=== PATIENT | female | born 1990 | race Caucasian/White ===

== ENCOUNTER 2020-10-02 16:57 | Inpatient (IN) | payer OTHER, SELFPAY ==
[2020-10-02 18:38] VITALS: BP 136/76; PULSE 74; RESP 16; TEMP 37.2; O2SAT 98; BMI 32.5
--- NOTE | 2020-10-02 19:17 | PC.NURSE ---
PT SEEN BY DR COLMENARES AND PT MAY NEED TO BE ADMITTED FOR IV ANTIBIOTIC THERAPY. PT MOVED TO MAIN ED BED 21 REPORTT GIVEN TO RN.
--- NOTE | 2020-10-02 19:40 | ED_ITS ---
HPI - Animal Bite General Chief Complaint: Animal Bite Stated Complaint: ankle pain, dental pain Time Seen by Provider: 10/02/20 19:05 Source: patient Mode of arrival: ambulatory Limitations: no limitations History of Present Illness HPI narrative: Patient comes to emergency room complaining of toothache, ankle swelling, and cellulitis around the dog bite. Patient states she has had chipped tooth for several weeks now, concerned that she may have a tooth infection. However, patient's main concern of today is the dog bite that is infected. Three weeks ago on September 10, patient got attacked by a friend's d og, a Rottweiler/pit bull mix. Patient was bitten in the right calf. The patient was given 10 days of oral Augmentin. Patient states she has not seen any pus oozing from her leg, however the wounds in her leg have a black eschar now. Patient states it hurts minimally, states most of the leg actually feels numb. Patient complaining pain and swelling around her ankle. Patient denies any fever or chills Related Data Allergies Allergy/AdvReac Type Severity Reaction Status Date / Time No Known Allergies Allergy Verified 10/02/20 18:43 [No Known Allergies*] Review of Systems 2 Review of Systems: Constitutional : No Weight loss, No Fever, No Chills, No Night Sweats, No Fatigue, No Malaise ENT/Mouth : No Hearing loss, No Ear Pain, No Nasal Congestion, No Sinus Pain, No Hoarseness, No sore throat, No Rhinorrhea, No Swallowing Difficulty, complaining of molar toothache in the right maxillary side Eyes: No Eye Pain, No Swelling, No Redness, No Foreign Body, No Discharge, No Vision Changes Cardiovascular : No Chest Pain, No SOB, No Dyspnea on Exertion, No Orthopnea, No Edema, No Palpitations Respiratory : No Cough, No Sputum, No Wheezing, No Smoke Exposure, No Dyspnea Gastrointestinal : No Nausea, No Vomiting, No Diarrhea, No Constipation, No abdominal Pain, No Hematochezia, No Melena Genitourinary : no irregular bleeding, No Dysuria, No Urinary Frequency, No Hematuria, No Urinary Incontinence, No Urgency, No Flank Pain, No Urinary Flow Changes, No Hesitancy Musculoskeletal : No joint pain, No Myalgias, No Joint Swelling Skin : Infected dog wound with necrotic eschars Neuro : No Weakness, No Numbness, No Paresthesias, No Loss of Consciousness, No Dizziness, No Headache Psych : No Anxiety/Panic, No Depression, No SI/HI/AH/VH, No Social Issues, Heme/Lymph: No Bruising, No Bleeding,No Lymphadenopathy Endocrine : No Polyuria, No Polydipsia, No Temperature Intolerance [facility] Past Medical History Medical History (Updated 10/02/20 @ 22:02 by Glenys Alejandro MD) Asthma Social History Social History Alcohol intake: never Substance Use Type: Marijuana Advance Directives: No Advance Directives Information Provided: Yes Physical Exam Vital Signs: Vital Signs: Last Vital Signs Temp 98.2 F 10/02/20 21:32 Pulse 69 10/02/20 21:32 Resp 16 10/02/20 21:32 BP 128/82 10/02/20 21:32 Pulse Ox 97 10/02/20 21:32 Body Mass Index 32.5 Appearance: Alert. Oriented X3. No acute distress. Eyes: Pupils equal, round and reactive to light. ENT: Pharynx normal. Chipped molar in the right maxilla, gum has an aphthous ulcer Neck: Normal inspection. Neck supple. No lymph nodes noted. No crepitus CVS: Normal heart rate and rhythm. Pulses normal. Normal S1 and S2 Respiratory: No respiratory distress. Breath sounds normal. No Wheezing. No rales Abdomen: Soft and nontender. No rigidity. No distention. good BS x4 Skin: Skin over the right calf is erythematous, patient has 3 open lacerations with a chronic eschars, pain to palpation around the skin wound and in the ankle, patient is able to flex and extend the ankle and move all toes Extremities: No lower extremity edema. No lower extremity edema. No Lacerations. No Rash Neuro: Oriented X 3. No motor deficit. No sensory deficit. Moving all extermities. No slurred speech. Course Course Course Narrative: I discussed the patient with Dr. Johns, patient will be admitted to the surgery service. MDM - Animal Bite Lab Data Result diagrams: 10/02/20 20:18 10/02/20 20:18 Labs: Lab Results 10/02/20 10/02/20 10/02/20 Range/Units 20:18 20:18 20:18 WBC 12.7 H (4.8-10.8) X10*3/uL RBC 4.41 (4.20-5.50) X10*6/uL Hgb 13.6 (12.0-16.0) g/dl Hct 41.1 (37-47) % MCV 93.2 (80-98) fL MCH 30.8 (27.0-33.0) pg MCHC 33.1 (31.0-35.0) g/dl RDW 13.0 (11.0-16.0) % Plt Count 405 H (160-400) X10*3/uL MPV 9.8 (9.4-12.3) fL Immature Gran % (Auto) 0.9 H (0.0-0.4) % Neut % (Auto) 68.6 (45-73) % Lymph % (Auto) 21.1 (20-40) % [place] % (Auto) 5.8 (2-11) % Eos % (Auto) 3.0 (0-4) % Baso % (Auto) 0.6 (0-2) % Lymph # (Auto) 2.7 (1.2-4.9) X10*3/uL [place] # (Auto) 0.7 (0.1-1.2) X10*3/uL Eos # (Auto) 0.4 (0.0-0.4) X10*3/uL Baso # (Auto) 0.1 (0.0-0.2) X10*3/uL Abs Immat Gran (auto) 0.12 H (0.00-0.03) X10*3/uL Absolute Neuts (auto) 8.7 H (2.0-8.3) X10*3/uL Absolute Nucleated RBC 0.000 (0.0-0.012) X10*3/uL Nucleated RBC % (auto) 0.0 (0.0-0.2) /100WBC Sodium 139 (135-145) mmol/L Potassium 4.4 (3.3-5.1) mmol/l Chloride 106 (96-108) mmol/L Carbon Dioxide 21 L (22-29) mmol/L Anion Gap 16 (12-20) BUN 9 (9-16) mg/dL Creatinine 0.73 (0.5-1.4) mg/dL Estim Creat Clear Calc 119.7 Estimated GFR > 60 Random Glucose 79 (60-115) mg/dL Lactic Acid 1.1 (0.5-2.0) mmol/L Calcium 8.8 (8.4-10.2) mg/dL Discharge Plan Discharge Clinical Impression: Dog bite, Cellulitis Patient Disposition: Admitted As Inpatient
[2020-10-02] MEDS: 0.9 % Sodium Chloride 1,000 ML 999 ML IVCONT (20:10)
[2020-10-02 20:26] LABS: MANUAL DIFF FLAG NO
[2020-10-02 20:29] LABS: Basophils Absolute Auto 0.1 X10*3/uL (0.0-0.2); Basophils Percent Auto 0.6 % (0-2); Eosinophils Absolute Auto 0.4 X10*3/uL (0.0-0.4); Hematocrit 41.1 % (37-47); Hemoglobin 13.6 g/dl (12.0-16.0); Imm Gran Abs Auto 0.12 X10*3/uL (0.00-0.03); Imm Gran Pct Auto 0.9 % (0.0-0.4); Lymphocytes Absolute Auto 2.7 X10*3/uL (1.2-4.9); Lymphocytes Percent Auto 21.1 % (20-40); Mean Corpuscular HGB Conc 33.1 g/dl (31.0-35.0); Mean Corpuscular Hemoglobin 30.8 pg (27.0-33.0); Mean Corpuscular Volume 93.2 fL (80-98); Mean Platelet Volume 9.8 fL (9.4-12.3); Monocytes Absolute Auto 0.7 X10*3/uL (0.1-1.2); Monocytes Percent Auto 5.8 % (2-11); Neutrophils Absolute Auto 8.7 X10*3/uL (2.0-8.3); Neutrophils Percent Auto 68.6 % (45-73); Platelet Count 405 X10*3/uL (160-400); Red Blood Count 4.41 X10*6/uL (4.20-5.50); White Blood Count 12.7 X10*3/uL (4.8-10.8)
[2020-10-02] MEDS: Piperacillin Sodium/Tazobactam 3.375 GM in 0.9 % Sodium Chloride 50 ML IV (20:30)
[2020-10-02] MEDS: Ketorolac Tromethamine 30 MG/ML VIAL IVPUSH (20:38)
[2020-10-02 20:52] LABS: Lactic Acid 1.1 mmol/L (0.5-2.0)
[2020-10-02 20:54] LABS: Anion Gap 16 (12-20); Blood Urea Nitrogen 9 mg/dL (9-16); Calcium 8.8 mg/dL (8.4-10.2); Carbon Dioxide 21 mmol/L (22-29); Chloride 106 mmol/L (96-108); Creatinine Clr Calc Pharmacy 119.7; Estimated Glomerular Filt Rate > 60; Glucose Random 79 mg/dL (60-115); Potassium 4.4 mmol/l (3.3-5.1); Sodium 139 mmol/L (135-145)
[2020-10-02] MEDS: vancomycin HCL 1,000 MG in 0.9 % Sodium Chloride 250 ML 270 MG IV (21:21)
[2020-10-02 21:32] VITALS: BP 128/82; PULSE 69; RESP 16; TEMP 36.8; O2SAT 97
--- NOTE | 2020-10-02 22:15 | PC.NURSE ---
PT STATES NO MEDS AT HOME. AREA BELOW WOUNDS REMAINS SWOLLEN, PAINFUL. ABLE TO AMBULATE STEADILY TO BATHROOM.
--- NOTE | 2020-10-02 22:16 | PC.NURSE ---
PT ARRIVES TRIAGED FROM [facility] [place]. PITBULL BITE 3 WKS AGO, GIVEN PO AUGMENTIN X 10 DAYS, INFECTION PERSISTS. PAIN AND SWELLING BELOW 3 BITE WOUNDS, SLIGHT DISTAL NUMBNESS, ABLE TO MOVE TOES, ICE PACK APPLIED. DENIES FEVERS AT HOME, VS WNL.
[2020-10-02 22:24] LABS: COVID-19 Test Negative (Negative)
--- NOTE | 2020-10-02 22:57 | PC.NURSE ---
Addendum entered by Alicia Ballard RN 10/02/20 22:58: *MED SURG Original Note: CALL MADE UP TO [facility] FOR REPORT
[2020-10-02] MEDS: Dextrose 5 % and Lactated Ring 1,000 ML 80 ML IVCONT (23:54)
[2020-10-02] MEDS: 0.9 % Sodium Chloride Flush 3 ML SYRINGE IVFLUSH (23:55)
[2020-10-03] VITALS: BP 132/91; PULSE 68; RESP 20; TEMP 36.7; O2SAT 99
[2020-10-03] MEDS: Piperacillin Sodium/Tazobactam 3.375 GM in 0.9 % Sodium Chloride 50 ML IV ×2 (01:40→20:23)
--- NOTE | 2020-10-03 06:13 | PM.HPGS ---
History of Present Illness History of Present Illness Date of Service: 10/03/20 Chief complaint: Dog bite leg, cellulitis Narrative: Jeni Pearson is a 30 year old female presenting with complaints of a dog bite to the right calf. The bite occurred approximately 3 weeks ago ( 09/10/2020 ) and was a dog well known to her, a Rottweiler/Pit Bull mix. She reports applying topical ointment such as bacitracin onto the wound and has kept the leg elevated as much as possible. She was seen in the emergency department several times at [facility] and placed on Augmentin. Initially there was improvement in the erythema but then she subsequently noted increased redness and black changes in the skin. She is most concerned about the swelling extending to the ankle which would develop as soon as she stood up and ambulated. She is admitted to the surgical service for further management of the dog. Today she reports an improvement in the pain and swelling of the right leg and ankle. The patient also reports a toothache after breaking her upper right molar eating chicken wings. She reports this pain is improved today as well. She denies fever, chills, or other associated symptoms. Review of Systems Constitutional: Constitutional: Denies chills, Denies fever(s), Denies headache(s) and Denies poor appetite ENT: Denies dizziness and Denies headache(s) Comments: toothache Cardiovascular: Cardiovascular: Denies chest pain, Denies rapid heart rate, Denies palpitations and Denies slow heart rate Respiratory: Respiratory: Denies chest congestion, Denies cough, Denies pain on inspiration and Denies wheezing Gastrointestinal: Gastrointestinal: Denies abdominal pain, Denies bloating, Denies change in stool character, Denies constipation, Denies diarrhea, Denies nausea, Denies vomiting and Denies hematemesis Musculoskeletal: Musculoskeletal: Denies back pain, Denies arthralgias, Reports joint swelling and Denies numbness Integumentary/Breasts: Skin/Breast: Denies change in pigmentation, Reports erythema and Denies rash Neurologic: Denies confusion, Denies dizziness, Denies headache(s) and Denies numbness Psychiatric: Psychiatric: Denies anxiety, Denies confusion and Denies depression Endocrine: Endocrine: Denies palpitations Hematologic/Lymphatic: Hematologic/Lymphatic: Denies easy bleeding, Denies easy bruising and Denies lymphadenopathy Allergic/Immunologic: Allergic/Immunologic: Denies wheezing PMFSH Past Medical History Medical History Asthma Social History Social History Household Members: Children Housing: Apartment Do you presently have visiting nurse or other home services: No Alcohol intake: never Smoking Status: Never smoker Substance Use Type: Marijuana Substance Use Frequency: Daily Currently Displaying Signs/Symptoms of Drug Intoxication Withdrawal: No Have you been hit, kicked, punched, or otherwise hurt by someone within the past year? If so, by whom?: No Do you feel safe in your current relationship?: No Is there a partner from a previous relationship who is making you feel unsafe now?: No Are you made to feel afraid or neglected: No Advance Directives: No Advance Directives Information Provided: Yes Do you have thoughts of harming others: None Meds Allergies Allergy/AdvReac Type Severity Reaction Status Date / Time adhesive tape Allergy Rash Verified 10/03/20 00:47 Home Medications Medication Instructions Recorded Confirmed Type No Known Home Meds 10/02/20 10/02/20 History Physical Exam Vital Signs: Vital Signs: Last Vital Signs Temp 98.0 F 10/03/20 00:00 Pulse 68 10/03/20 00:00 Resp 20 10/03/20 00:00 BP 132/91 H 10/03/20 00:00 Pulse Ox 99 10/03/20 00:00 Body Mass Index 32.5 Const: General: cooperative, comfortable and well developed; No confusion Nutritional Appearance: well nourished Orientation/consciousness: patient oriented x3 and No confusion Eyes: Sclerae: sclerae normal EOM: EOMs intact bilaterally Neck: Neck: Yes normal visual inspection Resp: Effort & Inspection: normal respiratory effort, no cough and no respiratory distress Cardio: Jugular venous distension: no JVD Rate: regular rate Rhythm: regular rhythm GI: Inspection: Yes normal to inspection Palpation (GI): Soft to palpation, nontender, no guarding and not rigid Percussion: Yes normal to percussion Auscultation: normal bowel sounds Skin: General skin exam: dry skin Rashes: no rashes Neuro: General: patient oriented x3, no focal motor deficits and No confusion Extrem: Other: right lateral thigh bite thom noted just above the ankle with 3 open wounds including an upper wound measuring 2.5 x 1 cm with a dark eschar in the center, an anterior wound measuring 1.5 x 1 cm, also with a dry eschar, and a 3rd lesion located slightly lower measuring 1.5 x 1.5 cm. This lesion has lifting of the eschar to reveal some early granulation tissue. There is a surrounding area of erythema and around each wound but no evidence of underlying abscess. There is no tenderness to palpation. No edema is currently noted in the foot or ankle. Wounds were dressed with a dry sterile dressing, Kerlix, and Rafael bandage. General: Yes full ROM and Yes no clubbing, cyanosis or edema Ankle/foot/toe images: 1. Site of bite thom Results Results Labs: Short CBC 10/02/20 Range/Units 20:18 WBC 12.7 H (4.8-10.8) X10*3/uL Hgb 13.6 (12.0-16.0) g/dl Hct 41.1 (37-47) % Plt Count 405 H (160-400) X10*3/uL BMP 10/02/20 20:18 Sodium 139 Potassium 4.4 Chloride 106 Carbon Dioxide 21 L BUN 9 Creatinine 0.73 Calcium 8.8 Assessment and Plan (1) Dog bite: Qualifiers: Encounter type: subsequent encounter Qualified Code(s): W54.0XXD - Bitten by dog, subsequent encounter Status: Acute 30-year-old female presenting with a 3 week history of a dog bite to the right calf presenting with erythema, skin necrosis, and edema involving the foot ankle. Patient is much improved after 1 night of IV antibiotics. I recommended continuing the IV antibiotics. No surgical debridement is required at this time as the necrotic skin appears to be lifting spontaneously. This appears to be related to an underlying hematoma from the initial trauma of the bite. Will continue the IV antibiotics for another day possible discharge in a.m. tomorrow if continued improvement. Patient understands and agrees with the plan. (2) Cellulitis: Qualifiers: Laterality: right Site of cellulitis: extremity Site of cellulitis of extremity: lower extremity Qualified Code(s): L03.115 - Cellulitis of right lower limb Status: Acute
[2020-10-03 07:26] LABS: MANUAL DIFF FLAG NO
[2020-10-03 07:37] LABS: Basophils Absolute Auto 0.1 X10*3/uL (0.0-0.2); Basophils Percent Auto 0.6 % (0-2); Eosinophils Absolute Auto 0.4 X10*3/uL (0.0-0.4); Eosinophils Percent Auto 3.5 % (0-4); Hematocrit 37.4 % (37-47); Hemoglobin 12.3 g/dl (12.0-16.0); Imm Gran Abs Auto 0.12 X10*3/uL (0.00-0.03); Imm Gran Pct Auto 1.1 % (0.0-0.4); Lymphocytes Absolute Auto 3.2 X10*3/uL (1.2-4.9); Lymphocytes Percent Auto 29.8 % (20-40); Mean Corpuscular HGB Conc 32.9 g/dl (31.0-35.0); Mean Corpuscular Hemoglobin 30.7 pg (27.0-33.0); Mean Corpuscular Volume 93.3 fL (80-98); Mean Platelet Volume 10.3 fL (9.4-12.3); Monocytes Absolute Auto 0.6 X10*3/uL (0.1-1.2); Monocytes Percent Auto 6.1 % (2-11); Neutrophils Absolute Auto 6.2 X10*3/uL (2.0-8.3); Neutrophils Percent Auto 58.9 % (45-73); Platelet Count 358 X10*3/uL (160-400); Red Blood Count 4.01 X10*6/uL (4.20-5.50); Red Cell Distribution Width 13.1 % (11.0-16.0); White Blood Count 10.6 X10*3/uL (4.8-10.8)
[2020-10-03 07:59] VITALS: BP 125/74; PULSE 64; RESP 20; TEMP 36.2; O2SAT 99
[2020-10-03] MEDS: Dextrose 5 % and Lactated Ring 1,000 ML 80 ML IVCONT ×2 (11:45→23:52)
--- NOTE | 2020-10-03 12:36 | MHC.CM.PN ---
NURSE WIRE DRAWING MACHINE OPERATOR NOTE ELECTRONIC MEDICAL RECORD REVIEWED ALNG WITH CASE DISCUSSED WITH STAFF NURSE , MET WITH PATIENT , SHE IS ACTIVE,INDEPENDENT IN ALL ADLS nd mobility , she is emplyoyed and lives with her 13 year old son her father lives ion the second floor discharge plan home no services anticipated transportation family pcp dr [facility]
[2020-10-03 15:34] VITALS: BP 130/88; PULSE 60; RESP 19; TEMP 36.1; O2SAT 98
[2020-10-03] MEDS: Ibuprofen 400 MG TABLET PO (16:17)
[2020-10-03 19:11] VITALS: BP 127/73; PULSE 82; RESP 20; TEMP 36.8; O2SAT 99
[2020-10-03] MEDS: 0.9 % Sodium Chloride Flush 3 ML SYRINGE IVFLUSH (20:53)
[2020-10-04] MEDS: Piperacillin Sodium/Tazobactam 3.375 GM in 0.9 % Sodium Chloride 50 ML IV ×2 (01:54→09:26)
[2020-10-04 08:00] VITALS: BP 119/77; PULSE 67; RESP 20; TEMP 36.3; O2SAT 99
--- NOTE | 2020-10-04 09:28 | P.F2F_ITS ---
Service Date Service Date: 10/04/20 Encounter Date of encounter: 10/04/20 Encounter: Dressing change, wound check. Reasons for Services Signs and symptoms assessed: Three open wound in the right lower leg following dog bite Reason for correction: wound care MD Overseeing Care: Akash Johns Homebound: Leaving the home is medically contraindicated at this time without the asist of a device and/or another person due th the listed conditions above and below. Reason homebound: pain with ambulation Homebound supporting statement: Patient needs to avoid ambulation and keep right leg elevated as much as possible. Certification: Based on the above findings, I certify that this patient is confined to the home and needs intermittent correction care, physical therapy and/or speech therapy, or continues to need occupational therapy. The patient is under my care, and I have initiated the establishment of the plan of care. The patient will be followed by a physician who will periodically review the plan of care.
--- NOTE | 2020-10-04 09:56 | MHC.CM.PN ---
NURSE TAR CHASER NOTE ELECTRONIC MEDICAL RECORD REVIEWED ALONG WITH CASE DISCUSSED WITH STAFF NURSE , PATIENT TIS AWARE THAT SHE WILL BE DISCHARGED HOME TODAY DISCHARGE PLAN HOME TODAY WITH NO SERVICES (PATIENT WILL BE ON ORAL ANTIBIOTICS PCP PATIENT TO CALL PRIMARY MD AT [facility] IN [facility], FOR POST HOSPITAL DISCHARGE FOLLOW UP
--- NOTE | 2020-10-04 10:27 | MHC.CM.PN ---
NURSE BRASS WIND INSTRUMENT MAKER NOTE ELECTRONIC MEDICAL RECORD REVIEWED ALONG WITH CASE DISCUSSED WITH THE SURGEON VIA TIGER TEXT AND STAFF NURSE , I MET WITH PATIENT SHE IS AWARE THAT SHE WILL BE HAVING DRESSING CHANGES DAILY , I EXPLAINED TO HER THAT THE VNA WILL NOT BE ABLE TO DO THIS ON CONTINUAL BASIS AND SHE IS WILLING TO LEARN REFERRALS SENT TO [facility], SPOKE WITH [facility] THEY HAVE NO AVAILABILITY[facility] AND [facility] FOR NURSING AVAILABILITY TO START TOMORROW DISCHARGE PLAN HOME WITH VNA FOR NURSING TO START ON MONDAY FOR WOUND ASSESSMENT AND DRESSING CHANGES QD AND TO TEACH PATIETN HOW TO DO THESE, AND EDSON BARNES OF DIAGNOSIS SIGH SYMPTOM MANAGEMENT AND WHOM TO MIGDALIA , FOR WHAT , AND WHEN , MEDICATION RECONCILIATION DISCHARGE PLAN HOME WITH VNA FOR NURSING WOUND ASSESSMENT DRESSING CHANGES QD THEY RISSA TEACH PATIENT HOW TO D THESE PCP DR ORLANDO BAIRD PATIENT TO CALL FOR POST HOSPITALS DISCHARGE FOLLOW UP
--- NOTE | 2020-10-04 11:12 | MHC.CM.PN ---
nurse respiratory care practitioner note [facility] not take new admissions on weekends, [facility] declined secondary top staffing shortage ,ernie from the vna called and spoke with patient they are wiling t accept her for initially daily dressings until she feels more comfortable and they will be out tomorrow. reviewed this with patient and she was very thankful
--- NOTE | 2020-10-05 13:12 | P.DS_ITS ---
DS: Providers Provider Date of admission: 10/02/20 21:37 Primary care physician: Thom Vera MD DS: Diagnosis Discharge Diagnosis (1) Dog bite: Status: Acute (2) Cellulitis: Status: Acute DS: Medications Discharge Medications Home Medications: Previous Rx's Medication Instructions Recorded cephalexin [Keflex] 500 mg PO QID #40 cap 10/04/20 silver-hydrocolloid dressing 1 ea TOPICAL DAILY 30 Days #1 box 10/04/20 [Aquacel-AG] DS: Summary Hospital Course Hospital Course: BRIEF HPI: Jeni Pearson is a 30 year old female presenting with complaints of a dog bite to the right calf. The bite occurred approximately 3 weeks ago ( 09/10/2020 ) and was a dog well known to her, a Rottweiler/Pit Bull mix. She reports applying topical ointment such as bacitracin onto the wound and has kept the leg elevated as much as possible. She was seen in the emergency department several times at [facility] and placed on Augmentin. Initially there was improvement in the erythema but then she subsequently noted increased redness and black changes in the skin. She is most concerned about the swelling extending to the ankle which would develop as soon as she stood up and ambulated. She denies fever, chills, or other associated symptoms. HOSPITAL COURSE: She is admitted to the surgical service for further management of the dog bite and cellulitis. She was started on IV zosyn overnight. Her WBC count was normal. She reported an improvement in the pain and swelling of the right leg and ankle. No surgical debridement was required. She was kept one more day for IV antibiotic treatment of the cellulitis. On the day of discharge, her ankle pain, erythema and inflammation had significantly improved. She remained afebrile. She was discharged to home on 10/04/20 in stable condition with a course of PO Keflex and Aquacel Ag with VNA services. Status at Discharge Functional status at discharge: independent ambulation Overall status at discharge: patient is progressing back to baseline Time Spent with Patient Time attestation: Total time spent providing and/or coordinating discharge services: Physical Exam Vital Signs: Vital Signs: Last Vital Signs Temp 97.3 F 10/04/20 08:00 Pulse 67 10/04/20 08:00 Resp 20 10/04/20 08:00 BP 119/77 10/04/20 08:00 Pulse Ox 99 10/04/20 08:00 Body Mass Index 32.5 Const: General: comfortable, no acute distress and alert Orientation/consciousness: patient oriented x3 Skin: Other: as noted in extremities Neuro: General: patient oriented x3 Extrem: Other: RIGHT ANKLE- bite thom noted just proximal to the lateral aspect of the ankle with 3 open wounds including an upper wound measuring 2.5 x 1 cm with a dark eschar in the center, an anterior wound measuring 1.5 x 1 cm, also with a dry eschar, and a 3rd lesion located slightly lower measuring 1.5 x 1.5 cm- lesions lifting with granulation tissue- erythema improved, no edema General: Yes normal exam except as noted DS: Data Data Completed and Pending Labs on day of discharge: 10/02/20 Breakfast Regular Diet 10/02/20 19:17 0.9 % Sodium Chloride [Ns] 1,000 ml IVCONT 999 mls/hr 10/02/20 19:36 Piperacillin Sodium/Tazobactam [Zosyn] 3.375 gm 0.9 % Sodium Chloride [Ns] 50 ml IV ONCE 10/02/20 19:37 vancomycin HCL 1,000 mg 0.9 % Sodium Chloride [Ns] 250 ml IV ONCE 10/02/20 19:38 Ketorolac Tromethamine [Toradol] 30 mg IVPUSH ONCE ONE 10/02/20 20:00 Piperacillin Sodium/Tazobactam [Zosyn] 3.375 gm IV .STK-MED ONE 10/02/20 20:18 Basic Metabolic Panel Stat Complete Blood Count Auto Diff Stat Lactic Acid Stat 10/02/20 21:10 vancomycin HCL 1,000 mg .ROUTE .STK-MED ONE 10/02/20 21:29 Code Status Routine Transfer Order Routine 10/02/20 21:37 Elevate extremity NOW 10/02/20 21:43 COVID-19 ID NOW ([facility]) Stat 10/02/20 23:32 Acetaminophen [Tylenol] 650 mg PO Q6H PRN Dextrose 5 % and Lactated Ring [D5lr] 1,000 ml IVCONT 80 mls/hr Ibuprofen [Motrin] 400 mg PO Q6H PRN Zolpidem Tartrate [Ambien] 5 mg PO BEDTIME PRN ondansetron HCL [Zofran] 4 mg IVPUSH Q8H PRN oxyCODONE HCl Immed Release [Roxicodone] 5 mg PO Q6H PRN 10/02/20 23:32 IV insert/maintain Q4HR Intake and Output QSHIFTE Vital Signs QSHIFT 10/03/20 00:00 0.9 % Sodium Chloride Flush [NS Flush] 3 ml IVFLUSH QSHIFT 10/03/20 01:30 Piperacillin Sodium/Tazobactam [Zosyn] 3.375 gm 0.9 % Sodium Chloride [Ns] 50 ml IV ONCE 10/03/20 01:36 Piperacillin Sodium/Tazobactam [Zosyn] 3.375 gm IV .STK-MED ONE 10/03/20 06:55 Complete Blood Count Auto Diff DAILY@0600 10/03/20 20:00 Piperacillin Sodium/Tazobactam [Zosyn] 3.375 gm 0.9 % Sodium Chloride [Ns] 50 ml IV Q6H 10/03/20 20:14 Piperacillin Sodium/Tazobactam [Zosyn] 3.375 gm IV .STK-MED ONE 10/04/20 01:50 Piperacillin Sodium/Tazobactam [Zosyn] 3.375 gm IV .STK-MED ONE 10/04/20 09:19 Piperacillin Sodium/Tazobactam [Zosyn] 3.375 gm IV .STK-MED ONE Laboratory Last Values WBC 10.6 X10*3/uL (4.8-10.8) 10/03/20 06:55 RBC 4.01 X10*6/uL (4.20-5.50) L 10/03/20 06:55 Hgb 12.3 g/dl (12.0-16.0) 10/03/20 06:55 Hct 37.4 % (37-47) 10/03/20 06:55 MCV 93.3 fL (80-98) 10/03/20 06:55 MCH 30.7 pg (27.0-33.0) 10/03/20 06:55 MCHC 32.9 g/dl (31.0-35.0) 10/03/20 06:55 RDW 13.1 % (11.0-16.0) 10/03/20 06:55 Plt Count 358 X10*3/uL (160-400) 10/03/20 06:55 MPV 10.3 fL (9.4-12.3) 10/03/20 06:55 Immature Gran % (Auto) 1.1 % (0.0-0.4) H 10/03/20 06:55 Neut % (Auto) 58.9 % (45-73) 10/03/20 06:55 Lymph % (Auto) 29.8 % (20-40) 10/03/20 06:55 Coffee % (Auto) 6.1 % (2-11) 10/03/20 06:55 Eos % (Auto) 3.5 % (0-4) 10/03/20 06:55 Baso % (Auto) 0.6 % (0-2) 10/03/20 06:55 Lymph # (Auto) 3.2 X10*3/uL (1.2-4.9) 10/03/20 06:55 Coffee # (Auto) 0.6 X10*3/uL (0.1-1.2) 10/03/20 06:55 Eos # (Auto) 0.4 X10*3/uL (0.0-0.4) 10/03/20 06:55 Baso # (Auto) 0.1 X10*3/uL (0.0-0.2) 10/03/20 06:55 Abs Immat Gran (auto) 0.12 X10*3/uL (0.00-0.03) H 10/03/20 06:55 Absolute Neuts (auto) 6.2 X10*3/uL (2.0-8.3) 10/03/20 06:55 Absolute Nucleated RBC 0.000 X10*3/uL (0.0-0.012) 10/03/20 06:55 Nucleated RBC % (auto) 0.0 /100WBC (0.0-0.2) 10/03/20 06:55 Sodium 139 mmol/L (135-145) 10/02/20 20:18 Potassium 4.4 mmol/l (3.3-5.1) 10/02/20 20:18 Chloride 106 mmol/L (96-108) 10/02/20 20:18 Carbon Dioxide 21 mmol/L (22-29) L 10/02/20 20:18 Anion Gap 16 (12-20) 10/02/20 20:18 BUN 9 mg/dL (9-16) 10/02/20 20:18 Creatinine 0.73 mg/dL (0.5-1.4) 10/02/20 20:18 Estim Creat Clear Calc 119.7 10/02/20 20:18 Estimated GFR > 60 10/02/20 20:18 Random Glucose 79 mg/dL (60-115) 10/02/20 20:18 Lactic Acid 1.1 mmol/L (0.5-2.0) 10/02/20 20:18 Calcium 8.8 mg/dL (8.4-10.2) 10/02/20 20:18 COVID-19 (MIHIR) Negative (Negative) 10/02/20 21:43 COVID-19 Clin Com See Note 10/02/20 21:43 Preliminary micro results at discharge 10/02/20 20:20 Blood Culture - Preliminary Blood - Venous No growth after 48 hours. 10/02/20 20:20 Blood Culture - Preliminary Blood - Venous No growth after 48 hours. Discharge Plan Discharge Patient Disposition: Home Health Service Referrals: [facility] [Outside] - 1 Day (NEW REFERRA TO THE [place] VISITING NURSE FOR WOUND ASSESSMENT , DRESSING CHANGES PER DISCHARGE INSTRUCTIONS AND TEACHING PATIENT HOW TO CHANGE DRESSING ALSO DIAGNSOSI SIGHN SYMPTOM MANAGEMENT DETAILED PLAN OF WHOM TO CALL , WHEN TO CALL AND FOR WHAT , ALSO MEDICATIONS RECONCIALTION THE NURSE WILL BE OUT TOMORROW AND THE DAY AFTER UNTIL YOU ARE FEELING MORE COMFORTABLE (YOU NEED TO BE HOME BOUND AND NOT [facility] ) Akash Johns MD [Physician] - 1 Week Thom Vera MD [Primary Care Provider] - Discharge Medications: New cephalexin [Keflex] 500 mg capsule 500 mg PO QID Qty: 40 RF: 0 Aquacel-AG 1.2-3.5 X 4 %- bandage 1 ea topical DAILY 30 Days Qty: 1 RF: 0 Discharge Orders: Discharge Order (Routine); Ordered 10/04/20 Ordered By: Akash Johns Diet: advance to usual diet Activity on Discharge: As tolerated Discharge Date/Time: 10/04/20 11:58 Visit Report Forms: Patient Portal Discharge page Care Plan Goals: Healing of right leg dog bite wounds Health Concerns: Open wound of right leg from Dog Bite Plan of Treatment: Wound care with Aquacel Ag applied to right leg daily Follow up in office in one week for wound check.
== END 2020-10-04 11:58 | disposition home health service (06) | DRG 384 ==
LOC: HO.ED 22:02 → HO.S3 22:57
PROVIDERS: Admitting Provider Surgery; Emergency Provider Emergency Medicine; PCP Internal Medicine; Visit Provider Surgery
DX: S81.851S Open bite, right lower leg, sequela (principal); L03.115 Cellulitis of right lower limb; W54.0XXS Bitten by dog, sequela; Z20.828 Contact with and (suspected) exposure to other viral communicable diseases
CPT/HCPCS: 36415; 80048; 83605; 85025; 87040; 87635; 96361; 96374; 96375; 99285; J1885; J2543; J3370

== ENCOUNTER 2021-06-27 18:48 | Emergency (ER) | payer OTHER, SELFPAY ==
[2021-06-27 19:07] VITALS: BP 148/90; PULSE 73; RESP 16; TEMP 36.6; O2SAT 99; BMI 34.3
[2021-06-27 19:27] LABS: IDNOW Serial# 08D9AD1C; Strep A Nucleic Acid Negative (Negative)
[2021-06-27 19:39] LABS: COVID-19 Test Negative (Negative); IDNOW Serial# 9DD0AD1C
--- NOTE | 2021-06-27 22:09 | ED_ITS ---
HPI - URI/Sore Throat General Chief Complaint: Upper Respiratory Symptoms Stated Complaint: strept? Time Seen by Provider: 06/27/21 21:47 Source: patient Mode of arrival: ambulatory Limitations: no limitations History of Present Illness HPI Narrative: 31-year-old female here with complaints of nasal congestion, bilateral ear pain, sore throat and cough for several days. No fevers or chills. Related Data Previous Rx's Medication Instructions Recorded cephalexin 500 mg capsule (Keflex) 500 mg PO QID #40 cap 10/04/20 silver-hydrocolloid dressing 1.2 1 ea TOPICAL DAILY 30 Days #1 box 10/04/20 %-3.5 X 4 (Aquacel-AG) amoxicillin 500 mg capsule 500 mg PO BID #20 cap 06/27/21 ibuprofen 600 mg tablet 600 mg PO Q8H PRN #20 tab 06/27/21 Allergies Allergy/AdvReac Type Severity Reaction Status Date / Time adhesive tape Allergy Rash Verified 10/03/20 00:47 Review of Systems Review of Systems: Yes all other systems are reviewed and are negative Constitutional: Constitutional: Reports no additional constitutional complaints, Denies body ache(s), Denies chills, Denies fever(s), Denies headache(s) and Denies weakness Eyes: Eyes: Reports no additional eye complaints and Denies change in vision ENT: Reports system reviewed and no additional complaints, except as documented, Denies dizziness, Reports otalgia, Denies headache(s), Reports nasal congestion, Denies nasal discharge, Denies neck pain and Reports sore throat Cardiovascular: Cardiovascular: Reports no additional cardiovascular complaints, Denies chest pain, Denies leg edema and Denies dyspnea Respiratory: Respiratory: Reports no additional respiratory complaints, Denies cough and Denies dyspnea Gastrointestinal: Gastrointestinal: Reports no additional gastrointestinal complaints, Denies abdominal pain, Denies diarrhea, Denies nausea and Denies vomiting Genitourinary: Genitourinary: Reports no additional female genitourinary complaints and Denies urinary incontinence Musculoskeletal: Musculoskeletal: Reports no additional musculoskeletal complaints, Denies back pain, Denies arthralgias, Denies joint swelling, Denies neck pain, Denies numbness and Denies tingling Integumentary/Breasts: Skin/Breast: Reports system reviewed and no additional complaints, except as docu and Denies rash Neurologic: Reports system reviewed and no additional complaints, except as do cumented, Denies Abnormal speech present, Denies dizziness, Denies headache(s), Denies numbness, Denies tingling and Denies weakness PMFSH Past Medical History Attestation statement: The following information was validated with the patient. Source: old records reviewed and nursing notes reviewed Medical History Asthma Social History Social History Household Members: Children Housing: Apartment Do you presently have visiting nurse or other home services: No Alcohol intake: never Substance Use Type: Marijuana Advance Directives: No Advance Directives Information Provided: No service: No Current occupational status: employed Physical Exam Vital Signs: Vital Signs: Last Vital Signs Temp 97.9 F 06/27/21 19:07 Pulse 73 06/27/21 19:07 Resp 16 06/27/21 19:07 BP 148/90 H 06/27/21 19:07 Pulse Ox 99 06/27/21 19:07 Body Mass Index 34.3 Const: General: cooperative, healthy appearing, comfortable and no acute distress Orientation/consciousness: patient oriented x3 Limitations: no limitations HENMT: Head: Yes normal to inspection Ears: hearing grossly normal bilaterally, mastoids normal, no periauricular adenopathy and TM abnormal (Bilateral erythema, bulging, dull) General nose exam: Normal external nose present Face and sinus: Yes normal facial exam Mouth: Normal oral and palatal mucosa present Throat: Yes posterior oropharynx normal, Yes tonsils normal and Yes uvula midline Eyes: General: appearance normal, both eyes and all related structures Pupils: Equal, round and reactive pupils present Neck: Neck: Yes normal visual inspection, Yes full ROM and Yes no lymphadenopathy Chest: Chest palpation & inspection: normal inspection of the chest Resp: Effort & Inspection: normal respiratory effort Auscultation: clear to auscultation bilaterally Cardio: Rate: regular rate Rhythm: regular rhythm Peripheral pulses: Peripheral pulses 2+ throughout GI: Inspection: Yes normal to inspection Palpation (GI): Soft to palpation and nontender Auscultation: normal bowel sounds Back/Spine/Pelvis: Thoracic/Lumbar Spine: thoracic and lumbar spine normal to inspection Skin: General skin exam: no rashes or lesions noted Neuro: General: patient oriented x3, no focal motor deficits and normal sensation to monofilament Cranial nerves: Yes Equal, round and reactive pupils present Cognition (Neuro): normal cognition Speech: No Abnormal speech present Gait exam (Neuro): Normal gait present Motor exam (neuro): 5/5 motor strength present throughout Extrem: General: Yes normal to inspection Course Course Course Narrative: URI symptoms for several days. COVID screen and strep screen are negative. Exam is consistent with AOM. Will treat with course of amoxicillin. Reviewed worrisome signs and symptoms when to return to the emergency department. Comfortable discharge home. MDM - URI/Sore Throat Medical Records Attestation: I reviewed the patient's medical records. Lab Data Attestation: I reviewed the patient's lab results. Labs: Lab Results 06/27/21 06/27/21 Range/Units 19:11 19:11 COVID-19 (MIHIR) Negative (Negative) COVID-19 Clin Com See Note S. pyogenes GrpA KAI Negative (Negative) Discharge Plan Discharge Clinical Impression: Otitis media Patient Disposition: Home, Self-Care Instructions: Ear Infection (ED) Additional Instructions: COVID screen negative Strep screen negative Increase fluids, rest, Motrin Tylenol for pain or fever Prescriptions: New ibuprofen 600 mg tablet 600 mg PO Q8H PRN (Reason: fever or pain) Qty: 20 RF: 0 amoxicillin 500 mg capsule 500 mg PO BID Qty: 20 RF: 0 No Action cephalexin [Keflex] 500 mg capsule 500 mg PO QID Qty: 40 RF: 0 Aquacel-AG 1.2-3.5 X 4 %- bandage 1 ea topical DAILY 30 Days Qty: 1 RF: 0 Referrals: Physician,Unknown [Primary Care Provider] - 2 days Interventions: ED Discharge Assessment Last Done: 06/27/21 21:55
== END 2021-06-27 22:22 | disposition home or self-care (01) ==
PROVIDERS: Emergency Provider Internal Medicine
DX: H66.93 Otitis media, unspecified, bilateral (principal); H92.03 Otalgia, bilateral; Z79.899 Other long term (current) drug therapy; Z20.822 Contact with and (suspected) exposure to COVID-19
CPT/HCPCS: 36415; 87635; 87651; 99283

== ENCOUNTER 2022-06-22 15:53 | Emergency (ER) | payer OTHER, SELFPAY ==
--- NOTE | ~2022-06-22 | XR_ITS ---
EXAMINATION: XR WRIST, RIGHT CLINICAL INFORMATION: Pain COMPARISON: 4 views of the right wrist TECHNIQUE: PA, lateral, and oblique views of the right wrist. FINDINGS: The bones and soft tissues are normal. No fracture. Alignment is anatomic with normal joint spaces. No erosions or abnormal soft tissue calcifications. XR/XR wrist RT min 3V IMPRESSION: Normal right wrist.
[2022-06-22 15:59] VITALS: BP 140/81; PULSE 54; RESP 16; TEMP 36.6; O2SAT 98; BMI 37.8
--- NOTE | 2022-06-22 17:17 | ED.GENADULT ---
HPI - General Adult General Chief complaint: General Medical Stated complaint: lump on right wrist ,tooth ache Time Seen by Provider: 06/22/22 17:17 Source: patient Mode of arrival: ambulatory Limitations: no limitations History of Present Illness HPI narrative: 32 yo female presents to the ER with multiple complaints. She reports a bump on the inside of her right wrist that she noticed last month aroudn 05/29 before a camping trip. It did not start bothering her until yesterday. She reports it causes come discomfort in her wrist and hand yesterday. She took Advil with improvement. She is right hand dominant and has history of carpal tunnel. She has not been wearing her wrist splint. She also reports painful upper tooth and gum with swelling in the area of a previously broken tooth. This has been going on for a few days. No new dental injury. She has been taking Advil and using listerine washes. She knows she needs to get the broken aspect removed but she has not been to her dentist. She denies any difficulty chewing or swallowing. no facial swelling. MD complaint: nontraumatic right wrist pain and dental pain Onset (ago): day(s) Location: mouth, right and upper extremity Radiation: non-radiation Severity: moderate Severity scale (1-10): 6 Quality: aching Pain Consistency: intermittent Relieving factors: medication Exacerbating factors: movement Associated symptoms: denies other symptoms Treatments prior to arrival: none Related Data Previous Rx's Medication Instructions Recorded cephalexin 500 mg capsule (Keflex) 500 mg PO QID #40 caps 10/04/20 silver-hydrocolloid dressing 1.2 1 ea topical DAILY 1 month #1 box 10/04/20 %-3.5 X 4 (Aquacel-AG) amoxicillin 500 mg capsule 500 mg PO BID #20 caps 06/27/21 ibuprofen 600 mg tablet 600 mg PO Q8H PRN fever or pain 06/27/21 #20 tabs amoxicillin 875 mg-potassium 1 tab PO BID #14 tabs 06/22/22 clavulanate 125 mg tablet ibuprofen 800 mg tablet 800 mg PO Q8H PRN pain #14 tabs 06/22/22 Allergies Allergy/AdvReac Type Severity Reaction Status Date / Time adhesive tape Allergy Rash Verified 06/22/22 15:59 Review of Systems Review of Systems: Constitutional: No Fever, No Chills ENT/Mouth: No sore throat, No Rhinorrhea, No Swallowing Difficulty, +tooth pain, +gum pain and swelling, No trismus Cardiovascular: No Chest Pain, No SOB Respiratory: No Cough, No Sputu Gastrointestinal: No Nausea, No Vomiting Musculoskeletal: + joint pain, No Myalgias Skin: No Skin Lesions, No rash Neuro: No Weakness, No Numbness, No Dizziness, No Headache Psych: No Anxiety/Panic, No Depression Heme/Lymph: No Bruising, No Lymphadenopathy [facility] Past Medical History Medical History Asthma Social History Social History Household Members: Children Housing: Apartment Do you presently have visiting nurse or other home services: No Alcohol intake: never Substance Use Type: Marijuana Advance Directives: No Advance Directives Information Provided: No service: No Current occupational status: employed Physical Exam ED Vital Signs: Vital Signs - 24 hr 06/22/22 15:59 Temperature 97.9 F Pulse Rate 54 Respiratory Rate 16 Blood Pressure 140/81 H Pulse Oximetry 98 Oxygen Delivery Method Room Air BMI result Body Mass Index 37.8 Appearance: Alert. Oriented X3. No acute distress. Eyes: Pupils equal, round and reactive to light. ENT: Pharynx with moist mucus membranes. poor dentition. upper right 1st molar broken with associated gingival swelling and tenderness, no fluctuance. Neck: Normal inspection. Neck supple. CVS: Normal heart rate and rhythm. Pulses normal. Respiratory: No respiratory distress. Breath sounds normal. Skin: Skin warm and dry. Normal skin color. Normal skin turgor. No rashes. Extremities: No lower extremity edema. Palmar aspect of the right wrist with a small, 1cm soft lesion on the radial side, slightly mobile. no skin changes, no fluctuance. normal ROM of all digits and of the right wrist. 2+ radial pulse. NV intact distally. Neuro: Oriented X 3. Grossly normal, nonfocal Course Course Course Narrative: 32 yo female presenting with nontraumatic right wrist pain and palpable lump. Lump is soft and consistent with a ganglion cyst. No evidence of abscess. NV intact without and focal deficits. Normal sensation and strength throughout. Advised to wear her splint and follow up [facility] Hand specialist if symptoms persist despite conservative management. She also has what appears to be an early dental abscess forming. Will start on PO abx and NSAID and have her follow up with her dentist EZEKIEL. Stable for d/c home. Discharge Plan Discharge Clinical Impression: Ganglion cyst, Abscess, dental Patient Disposition: Home, Self-Care Instructions: Dental Abscess (ED), Ganglion Cysts (ED), Ganglion Cyst Removal (DC) Additional Instructions: Your x-ray today was normal. Recommend wearing your wrist splint while sleeping. Follow up with the Hand Specialist if the cyst is bothersome - name and number below Your exam is consistent with the early dental abscess. Take the prescribed antibiotics as directed, complete the entire course. Follow-up with your dentist as soon as possible If you develop new or worsening symptoms call 911 or come back to the ER for further evaluation. Prescriptions: New amoxicillin-pot clavulanate 875-125 mg tablet 1 tab PO BID Qty: 14 0RF ibuprofen 800 mg tablet 800 mg PO Q8H PRN (Reason: pain) Qty: 14 0RF No Action ibuprofen 600 mg tablet 600 mg PO Q8H PRN (Reason: fever or pain) Qty: 20 0RF amoxicillin 500 mg capsule 500 mg PO BID Qty: 20 0RF cephalexin [Keflex] 500 mg capsule 500 mg PO QID Qty: 40 0RF Aquacel-AG 1.2-3.5 X 4 %- bandage 1 ea topical DAILY 30 Days Qty: 1 0RF Rx Instructions: Cut square to cover open wounds daily, cover with sterile gauze dressing Referrals: Charissa Melendez MD [Physician] - Interventions: ED Discharge Assessment Last Done: 06/22/22 18:15 Discharge Date/Time: 06/22/22 18:16 Print Language: Maltese
== END 2022-06-22 18:16 | disposition home or self-care (01) ==
PROVIDERS: Emergency Provider Emergency Medicine Emergency Medical Services
DX: M67.431 Ganglion, right wrist (principal); K04.7 Periapical abscess without sinus; F12.90 Cannabis use, unspecified, uncomplicated
CPT/HCPCS: 73110; 99283

== ENCOUNTER 2023-09-14 19:49 | Emergency (ER) | payer OTHER, SELFPAY ==
--- NOTE | ~2023-09-14 | US_ITS ---
EXAMINATION: US VENOUS ULTRASOUND WITH DOPPLER LOWER EXTREMITY, RIGHT CLINICAL INFORMATION: Posterior thigh pain COMPARISON: None available. TECHNIQUE: Ultrasound of the deep veins is performed from the hip to the calf with compression sonography and color and pulse Doppler assessment. Spectral analysis with color-flow imaging is performed. FINDINGS: There is normal venous compression and respiratory variation and augmented flow. The visualized common femoral vein, superficial femoral vein, profunda femoral vein, popliteal vein, and the trifurcation region shows no evidence of deep venous thrombosis. There is no significant popliteal fossa cyst. If the patient's symptoms persist, followup ultrasound in 5 days 7 days might be of value to exclude proximal propagation from a non-visualized calf vein. US/US venous duplex LE RT IMPRESSION: No DVT demonstrated in the right lower extremity.
--- NOTE | ~2023-09-14 | XR_ITS ---
EXAMINATION: XR KNEE, RIGHT CLINICAL INFORMATION: Pain COMPARISON: None available. TECHNIQUE: Four views of the right knee. FINDINGS: No acute fracture or dislocation. No bony erosion. No significant degenerative changes. XR/XR knee RT 2V IMPRESSION: No acute bony finding
[2023-09-14 19:56] VITALS: BP 132/77; PULSE 74; RESP 16; TEMP 36.4; O2SAT 98; BMI 36.9
--- NOTE | 2023-09-14 20:01 | ED.GENADULT ---
HPI - General Adult General Chief complaint: Extremity Injury, Lower Stated complaint: RT leg pain Time Seen by Provider: 09/14/23 21:12 Source: patient Mode of arrival: ambulatory Limitations: no limitations History of Present Illness HPI narrative: A 33-year-old female came in for evaluation of right lower extremities pain for the past 3 weeks. Pain started after patient had a fall 3 weeks ago, patient was seen by PCP patient stated that she did not get enough care for her injuries and pain patient has been suffering of right leg pain for the past 3 weeks, claimed that she can not go to work because of her pain. Patient has no history of drug abuse. Related Data Previous Rx's Medication Instructions Recorded cephalexin 500 mg capsule (Keflex) 500 mg PO QID #40 caps 10/04/20 silver-hydrocolloid dressing 1.2 1 ea topical DAILY 1 month #1 box 10/04/20 %-3.5 X 4 (Aquacel-AG) amoxicillin 500 mg capsule 500 mg PO BID #20 caps 06/27/21 ibuprofen 600 mg tablet 600 mg PO Q8H PRN fever or pain 06/27/21 #20 tabs amoxicillin 875 mg-potassium 1 tab PO BID #14 tabs 06/22/22 clavulanate 125 mg tablet ibuprofen 800 mg tablet 800 mg PO Q8H PRN pain #14 tabs 06/22/22 oxycodone 5 mg tablet 5 mg PO Q8H PRN pain #10 tabs 09/14/23 Allergies Allergy/AdvReac Type Severity Reaction Status Date / Time adhesive tape Allergy Rash Verified 09/14/23 19:56 Review of Systems Review of Systems: All other systems are reviewed and are negative Constitutional: Reports as per HPI and Reports no additional constitutional complaints Eyes: Reports as per HPI and Reports no additional eye complaints Reports system reviewed and no additional complaints, except as documented Cardiovascular: Reports as per HPI and Reports no additional cardiovascular complaints Respiratory: Reports as per HPI and Reports no additional respiratory complaints Gastrointestinal: Reports as per HPI and Reports no additional gastrointestinal complaints Genitourinary: Reports no additional female genitourinary complaints Musculoskeletal: Reports no additional musculoskeletal complaints Skin/Breast: Reports system reviewed and no additional complaints, except as docu Psychiatric: Reports no additional psychiatric complaints Endocrine: Reports no additional endocrine complaints Hematologic/Lymphatic: Reports no additional hematologic/lymphatic complaints Allergic/Immunologic: Reports no additional allergic/immunologic complaints Reports system reviewed and no additional complaints, except as documented and Reports Abnormal speech present [facility] Past Medical History Medical History Asthma Social History Social History Household Members: Children Housing: Apartment Do you presently have visiting nurse or other home services: No Alcohol intake: never Substance Use Type: Marijuana Advance Directives: No service: No Current occupational status: employed Physical Exam ED Vital Signs: Vital Signs - 24 hr 09/14/23 19:56 09/14/23 21:16 09/14/23 22:49 Temperature 97.6 F Pulse Rate 74 75 88 Respiratory Rate 16 17 15 Blood Pressure 132/77 135/84 Pulse Oximetry 98 100 97 Oxygen Delivery Method Room Air Room Air Room Air BMI result Body Mass Index 36.9 Vital signs have been reviewed and appear to be correct. Blood pressure elevated. Heart rate normal. Respiratory rate normal. Temperature normal. Oxygen saturation normal. Appearance: Alert. Oriented X3. No acute distress. Head: Normal external exam. Normocephalic. Atraumatic. No Simental signs noted. No raccoon eyes noted Eyes: PERRLA. EOMI. Conjunctiva and sclera normal. Eyelids normal. ENT: TM's Normal. Pharynx normal. Uvula midline. Moist mucous membranes. No trismus noted. No drooling noted. No muffled voice noted. Neck: Normal inspection. Neck supple. FROM. No adenopathy. Thyroid Normal. No meningeal signs. No neck mass noted. CVS: Normal heart rate and rhythm. Heart sound normal. No murmurs noted. Pulses normal throughout. Respiratory: No respiratory distress. Painless inspiration. Breath sounds normal. No wheezes/rales/rhonchi noted. Chest nontender. No accessory muscle usage noted or decreased air movement noted. Abdomen: Soft and nontender. Bowel sounds normal in all 4 quadrants. No distention noted. No organomegaly noted. No visible injury noted. Back: No CVA tenderness. Full range of motion noted. Skin: Skin warm and dry. Normal skin color. Normal skin turgor. No rashes/lesions/lacerations noted. Extremities: No lower extremity edema. Right knee: No deformity, no step-off, able to ambulate with limping, neurovascularly intact, no redness, no hotness, no evidence of cellulitis. Neuro: Oriented X 3. Cranial nerve exam: II-XII are grossly intact No motor deficit. No sensory deficit. Reflexes normal. Course Course Course Narrative: RME: 33 yold female presents to the ED for posteiror thight right knee pain for 3 weeks. patient scheduled for Ultrasound for . NO trauma. Ultrasound ordered Reevaluation(s) Reevaluation #1: Three weeks of right lower extremity pain, x-ray is demonstrating no fracture, no DVT on the ultrasound. Time: 21:43 Medications Administered Discontinued Medications Generic Name Dose Route Start Last Admin Trade Name Freq PRN Reason Stop Dose Admin Ibuprofen 600 mg 09/14/23 21:29 09/14/23 21:39 Ibuprofen 600 Mg Tablet PO 09/14/23 21:30 600 mg ONCE ONE Administration Oxycodone HCl 5 mg 09/14/23 21:29 09/14/23 21:38 Oxycodone Hcl Immed Release 5 Mg Tablet PO 09/14/23 21:30 5 mg ONCE ONE Administration Medical Decision Making Differential Diagnosis Differential Diagnoses: The differential diagnosis associated with the presentation includes (DVT, osseous injury of the right knee, contusion, cellulitis) Admission/Observation Consideration of admission/observation: Escalation of care including admission/observation considered Independent Interpretation I performed an independent interpretation of an: Plain X-Ray (Right knee: No fracture.) and Ultrasound (Right lower extremities: No DVT.) Radiology Impression Discussion of test interpretation with radiology: I have reviewed the radiologist's reading. Discharge Plan Discharge Clinical Impression: Contusion of leg, right Patient Disposition: Home, Self-Care Instructions: Contusion in Adults (ED) Prescriptions: New oxycodone 5 mg tablet 5 mg PO Q8H PRN (Reason: pain) Qty: 10 0RF Rx Instructions: Partial Fill upon patient request. No Action ibuprofen 600 mg tablet 600 mg PO Q8H PRN (Reason: fever or pain) Qty: 20 0RF amoxicillin 500 mg capsule 500 mg PO BID Qty: 20 0RF cephalexin [Keflex] 500 mg capsule 500 mg PO QID Qty: 40 0RF Aquacel-AG 1.2-3.5 X 4 %- bandage 1 ea topical DAILY 30 Days Qty: 1 0RF Rx Instructions: Cut square to cover open wounds daily, cover with sterile gauze dressing amoxicillin-pot clavulanate 875-125 mg tablet 1 tab PO BID Qty: 14 0RF ibuprofen 800 mg tablet 800 mg PO Q8H PRN (Reason: pain) Qty: 14 0RF Interventions: ED Discharge Assessment Last Done: 09/14/23 23:20 Discharge Date/Time: 09/14/23 23:23
[2023-09-14 21:16] VITALS: BP 135/84; PULSE 75; RESP 17; O2SAT 100
[2023-09-14] MEDS: oxyCODONE HCl Immed Release 5 MG TABLET PO (21:38)
[2023-09-14] MEDS: Ibuprofen 600 MG TABLET PO (21:39)
[2023-09-14 22:49] VITALS: PULSE 88; RESP 15; O2SAT 97
== END 2023-09-14 23:23 | disposition home or self-care (01) ==
PROVIDERS: Emergency Provider Emergency Medicine
DX: S80.11XA Contusion of right lower leg, initial encounter (principal); W19.XXXA Unspecified fall, initial encounter; M79.661 Pain in right lower leg; Y93.9 Activity, unspecified; Y92.9 Unspecified place or not applicable; Y99.9 Unspecified external cause status
CPT/HCPCS: 73560; 93971; 99284

== ENCOUNTER 2024-01-29 19:05 | Emergency (ER) | payer OTHER, SELFPAY ==
--- NOTE | 2024-01-29 19:43 | ED_ITS ---
HPI - General Adult General Chief complaint: Abdominal Pain Stated complaint: vomiting Time Seen by Provider: 01/30/24 00:19 Source: patient Mode of arrival: ambulatory History of Present Illness HPI narrative: 33-year-old female without significant past medical history other than having used alcohol yesterday as well as smoking weed reports that she has had multiple episodes of nausea and vomiting since 10:00 o'clock this morning with upper abdominal discomfort and her history is status post cholecystectomy and she denies any fevers or chills or urinary symptoms. In addition, she denies any sick contacts. Related Data Previous Rx's Medication Instructions Recorded cephalexin 500 mg capsule (Keflex) 500 mg PO QID #40 caps 10/04/20 silver-hydrocolloid dressing 1.2 1 ea topical DAILY 1 month #1 box 10/04/20 %-3.5 X 4 (Aquacel-AG) amoxicillin 500 mg capsule 500 mg PO BID #20 caps 06/27/21 ibuprofen 600 mg tablet 600 mg PO Q8H PRN fever or pain 06/27/21 #20 tabs amoxicillin 875 mg-potassium 1 tab PO BID #14 tabs 06/22/22 clavulanate 125 mg tablet ibuprofen 800 mg tablet 800 mg PO Q8H PRN pain #14 tabs 06/22/22 oxycodone 5 mg tablet 5 mg PO Q8H PRN pain #10 tabs 09/14/23 sucralfate 100 mg/mL oral 10 ml PO BID #420 mL 01/30/24 suspension (Carafate) Allergies Allergy/AdvReac Type Severity Reaction Status Date / Time adhesive tape Allergy Rash Verified 09/14/23 19:56 Review of Systems 2 Review of Systems: Pertinent positives and negatives as stated in HPI [facility] Past Medical History Source: nursing notes reviewed Medical History Asthma Social History Social History Household Members: Children Housing: Apartment Do you presently have visiting nurse or other home services: No Alcohol intake: never Substance Use Type: Marijuana Advance Directives: No Advance Directives Information Provided: No service: No Current occupational status: employed Physical Exam ED Vital Signs: Vital Signs - 24 hr 01/29/24 19:44 01/29/24 22:59 Temperature 96.3 F L 97.8 F Pulse Rate 65 72 Respiratory Rate 18 16 Blood Pressure 151/83 H 129/73 Pulse Oximetry 98 100 Oxygen Delivery Method Room Air Room Air BMI result Body Mass Index 35.7 VITAL SIGNS: Reviewed. GENERAL: Well developed, well nourished, in no acute distress. HEAD: Normocephalic/atraumatic EYES: PERRLA, EOMI EARS: Ext canals without abnormality, TMs non-bulging and non-erythematous NOSE: Nares patent bilateral OROPHARYNX: no oral lesions noted, posterior pharynx clear and non-erythematous without noted tonsillar enlargement/erythema/exudates NECK: Supple, no adenopathy LUNGS: Normal breath sounds. No adventitious sounds or accessory muscle use. SpO2<100> CARDIOVASCULAR: Regular rate and rhythm without noted murmurs ABDOMEN: Soft, non-tender, non-distended with bowel sounds. MUSCULOSKELETAL: No tenderness, deformities, or effusions noted on gross inspection. EXTREMITIES: No cyanosis, clubbing or edema. SKIN: Inspection of the skin reveals no rashes NEUROLOGIC: Alert and oriented x 4. Strength and sensation to light touch were grossly intact x 4. Course Course Course Narrative: RME performed by Marleny Malone PA-C. Patient is a 33 year old assigned female at presenting to the emergency department with nausea and vomiting. Detailed physical exam and review of systems are deferred to the psychiatric clinician. Labs and swabs ordered. Patient placed back in the waiting room pending room availability and results. Medications Administered Discontinued Medications Generic Name Dose Route Start Last Admin Trade Name Freq PRN Reason Stop Dose Admin Al Hydroxide/Mg Hydroxide 30 ml 01/30/24 00:37 01/30/24 01:03 Magnesium Hydrox/Alum Hydrox 30 Ml Oral.Susp PO 01/30/24 00:38 30 ml ONCE ONE Administration Lidocaine HCl 10 ml 01/30/24 00:37 01/30/24 01:03 Lidocaine Hcl Viscous 2 % 15 Ml Solution MUCOUS MEM 01/30/24 00:38 10 ml ONCE ONE Administration Ondansetron HCl 4 mg 01/29/24 19:44 01/29/24 19:50 Ondansetron Odt 4 Mg Tab.Rapdis TRANSLINGU 01/29/24 19:45 4 mg ONCE ONE Administration Sucralfate 1 gm 01/30/24 00:37 01/30/24 01:03 Sucralfate Oral Suspension 1 Gm/10 Ml Oral.Susp PO 01/30/24 00:38 1 gm ONCE ONE Administration Medical Decision Making Medical Decision Making [facility] Narrative: 33-year-old female with history and clinical presentation, DDX: Alcoholic gastritis, pancreatitis, viral gastroenteritis, cyclical vomiting. Patient received antiemetics as well as GI cocktail. I reviewed all investigations and hematologic indices significant for non infectious leukocytosis and there is no anemia or thrombocytopenia. Chemistry disease negative for HUSSAIN or electrolyte/liver enzyme derangements. Viral testing negative for influenza/RSV/COVID-19. Patient was finally able to tolerate oral intake after the Zofran and received a GI cocktail and Carafate and was able to tolerate oral intake. There are no findings to suggest pancreatitis and patient is feeling better. Differential Diagnosis Differential Diagnoses: The differential diagnosis associated with the presentation includes Please see the discussion above Admission/Observation Consideration of admission/observation: Escalation of care including admission/observation considered Please see the discussion above Lab Data [facility] Lab Attestation statement: I reviewed the patient's lab results. Please see the discussion above 01/29/24 20:06 01/29/24 20:06 Labs: Lab Results 01/29/24 Range/Units 20:06 WBC 18.1 H (4.8-10.8) X10*3/uL RBC 4.96 (4.20-5.50) X10*6/uL Hgb 14.7 (12.0-16.0) g/dl Hct 43.9 (37.0-47.0) % MCV 88.5 (80.0-98.0) fL MCH 29.6 (27.0-33.0) pg MCHC 33.5 (31.0-35.0) g/dl RDW 13.2 (11.0-16.0) % Plt Count 394 (160-400) X10*3/uL MPV 9.3 L (9.4-12.3) fL Immature Gran % (Auto) 0.8 H (0.0-0.4) % Neut % (Auto) 88.5 H (45-73) % Lymph % (Auto) 5.5 L (20-40) % [place] % (Auto) 4.9 (2-11) % Eos % (Auto) 0.1 (0-4) % Baso % (Auto) 0.2 (0-2) % Lymph # (Auto) 1.0 L (1.2-4.9) X10*3/uL [place] # (Auto) 0.9 (0.1-1.2) X10*3/uL Eos # (Auto) 0.0 (0.0-0.4) X10*3/uL Baso # (Auto) 0.0 (0.0-0.2) X10*3/uL Abs Immat Gran (auto) 0.14 H (0.00-0.03) X10*3/uL Absolute Neuts (auto) 16.0 H (2.0-8.3) x10*3/uL Absolute Nucleated RBC 0.000 (0.0-0.012) X10*3/uL Nucleated RBC % (auto) 0.0 (0.0-0.2) /100WBC Sodium 144 (135-145) mmol/L Potassium 3.8 (3.3-5.1) mmol/L Chloride 111 H (96-108) mmol/L Carbon Dioxide 23 (22-29) mmol/L Anion Gap 14 (12-20) BUN 12 (9-16) mg/dL Creatinine 0.76 (0.5-1.4) mg/dL Estim Creat Clear Calc 117.2 Estimated GFR > 60 Random Glucose 153 H (60-115) mg/dL Calcium 9.9 D (8.4-10.2) mg/dL Magnesium 1.8 (1.6-2.6) mg/dL Total Bilirubin 0.5 (0.0-1.0) mg/dL AST 12 (5-31) U/L ALT 16 (0-31) U/L Alkaline Phosphatase 70 (39-117) U/L Total Protein 7.7 (6.5-8.0) g/dL Albumin 4.4 (3.5-5.0) g/dL Lipase 21 (8-78) U/L Beta HCG, Quant < 2 mIU/mL Influenza Type A (PCR) NEGATIVE (Negative) Influenza Type B (PCR) NEGATIVE (Negative) RSV RNA Qual (PCR) NEGATIVE (Negative) SARS-CoV-2 RNA (RT-PCR) NEGATIVE (Negative) External Record Review External record reviewed: Outpatient record, Prior outpatient labs and Prior outpatient radiology Critical Care Time Critical Care Time Critical Care Time: Yes Total Critical Care Time: 30 Attestation: I personally attest to this time spent taking care of the patient. Discharge Plan Discharge Clinical Impression: Alcoholic gastritis Patient Disposition: Home, Self-Care Instructions: Gastritis (ED), Diet for Stomach Ulcers and Gastritis (ED) Additional Instructions: 1. It seems you may be suffering from alcoholic gastritis, the rest of your lab work appears to be within normal limits. 2. Medication to help with the stomach discomfort has been sent to your pharmacy. 3. Follow-up with your primary care doctor. Return to the ER for any worsening symptoms. Prescriptions: New sucralfate [Carafate] 100 mg/mL suspension 10 ml PO BID Qty: 420 0RF No Action ibuprofen 600 mg tablet 600 mg PO Q8H PRN (Reason: fever or pain) Qty: 20 0RF amoxicillin 500 mg capsule 500 mg PO BID Qty: 20 0RF cephalexin [Keflex] 500 mg capsule 500 mg PO QID Qty: 40 0RF Aquacel-AG 1.2-3.5 X 4 %- bandage 1 ea topical DAILY 30 Days Qty: 1 0RF Rx Instructions: Cut square to cover open wounds daily, cover with sterile gauze dressing amoxicillin-pot clavulanate 875-125 mg tablet 1 tab PO BID Qty: 14 0RF ibuprofen 800 mg tablet 800 mg PO Q8H PRN (Reason: pain) Qty: 14 0RF oxycodone 5 mg tablet 5 mg PO Q8H PRN (Reason: pain) Qty: 10 0RF Rx Instructions: Partial Fill upon patient request.
[2024-01-29 19:44] VITALS: BP 151/83; PULSE 65; RESP 18; TEMP 35.7; O2SAT 98; BMI 35.7
[2024-01-29] MEDS: Ondansetron ODT 4 MG TAB.RAPDIS TRANSLINGU (19:50)
[2024-01-29 20:11] LABS: MANUAL DIFF FLAG NO
[2024-01-29 20:13] LABS: Basophils Percent Auto 0.2 % (0-2); Eosinophils Percent Auto 0.1 % (0-4); Hematocrit 43.9 % (37.0-47.0); Hemoglobin 14.7 g/dl (12.0-16.0); Imm Gran Abs Auto 0.14 X10*3/uL (0.00-0.03); Imm Gran Pct Auto 0.8 % (0.0-0.4); Lymphocytes Percent Auto 5.5 % (20-40); Mean Corpuscular HGB Conc 33.5 g/dl (31.0-35.0); Mean Corpuscular Hemoglobin 29.6 pg (27.0-33.0); Mean Corpuscular Volume 88.5 fL (80.0-98.0); Mean Platelet Volume 9.3 fL (9.4-12.3); Monocytes Absolute Auto 0.9 X10*3/uL (0.1-1.2); Monocytes Percent Auto 4.9 % (2-11); Neutrophils Percent Auto 88.5 % (45-73); Platelet Count 394 X10*3/uL (160-400); Red Blood Count 4.96 X10*6/uL (4.20-5.50); Red Cell Distribution Width 13.2 % (11.0-16.0); White Blood Count 18.1 X10*3/uL (4.8-10.8)
[2024-01-29 20:33] LABS: Alanine Aminotransferase 16 U/L (0-31); Albumin Level 4.4 g/dL (3.5-5.0); Alkaline Phosphatase 70 U/L (39-117); Anion Gap 14 (12-20); Aspartate Amino Transferase 12 U/L (5-31); Bilirubin Total 0.5 mg/dL (0.0-1.0); Blood Urea Nitrogen 12 mg/dL (9-16); Calcium 9.9 mg/dL (8.4-10.2); Carbon Dioxide 23 mmol/L (22-29); Chloride 111 mmol/L (96-108); Creatinine Clr Calc Pharmacy 117.2; Estimated Glomerular Filt Rate > 60; Glucose Random 153 mg/dL (60-115); Magnesium 1.8 mg/dL (1.6-2.6); Potassium 3.8 mmol/L (3.3-5.1); Sodium 144 mmol/L (135-145); Total Protein 7.7 g/dL (6.5-8.0)
[2024-01-29 20:34] LABS: HCG Quantitative < 2 mIU/mL
[2024-01-29 20:50] LABS: Influenza A PCR NEGATIVE (Negative); Influenza B PCR NEGATIVE (Negative); Resp Syncy Virus RNA Qual PCR NEGATIVE (Negative); SARS COV2 PCR INHOUSE NEGATIVE (Negative)
[2024-01-29 22:59] VITALS: BP 129/73; PULSE 72; RESP 16; TEMP 36.6; O2SAT 100
[2024-01-30 01:01] LABS: Lipase 21 U/L (8-78)
[2024-01-30] MEDS: Lidocaine HCl Viscous 2 % 15 ML SOLUTION 10 ML MUCOUS MEM (01:03)
[2024-01-30] MEDS: Magnesium Hydrox/Alum Hydrox 30 ML ORAL.SUSP PO (01:03)
[2024-01-30] MEDS: Sucralfate Oral Suspension 1 GM/10 ML ORAL.SUSP PO (01:03)
[2024-01-30 02:09] VITALS: BP 146/79; PULSE 56; RESP 18; TEMP 36.4; O2SAT 99
[2024-01-30 02:11] VITALS: BP 146/79; PULSE 56; RESP 16; TEMP 36.4; O2SAT 99
== END 2024-01-30 02:12 | disposition home or self-care (01) ==
PROVIDERS: Physician Assistant Medical; Emergency Provider Student in an Organized Health Care Education/Training Program
DX: K29.20 Alcoholic gastritis without bleeding (principal); J45.909 Unspecified asthma, uncomplicated; Z11.52 Encounter for screening for COVID-19; Z20.828 Contact with and (suspected) exposure to other viral communicable diseases
CPT/HCPCS: 0241U; 80053; 83690; 83735; 84702; 85025; 99283

== ENCOUNTER 2024-02-04 20:47 | Emergency (ER) | payer OTHER, SELFPAY ==
--- NOTE | ~2024-02-04 | CT_ITS ---
EXAMINATION: CT ABDOMEN AND PELVIS WITH CONTRAST CLINICAL INFORMATION: Diffuse abdominal pain, nausea/vomiting/diarrhea, elevated white blood cell count COMPARISON: None available. TECHNIQUE: Multidetector volumetric images were obtained from the superior aspect of the liver through the pubic symphysis following administration 85 mL of Omnipaque 350 intravenous contrast. Sagittal and coronal reformatted images were obtained on the technologist's workstation. Oral contrast: No This CT examination was performed using dose optimization techniques as appropriate, variously including the following: *Automated exposure control *Adjustment of mA and/or kV according to patient size (this includes techniques or standardized protocols for targeted exams where dose is matched to indication/reason for exam; i.e. extremities or head) *Use of iterative reconstruction technique DLP: 657 mGy-cm FINDINGS: LUNG BASES: The visualized lung bases are unremarkable. LIVER, GALLBLADDER, AND BILIARY TREE: The liver is normal in size, shape, and attenuation. No focal hepatic lesion or biliary ductal dilatation is present. Gallbladder is not visualized. PANCREAS: Unremarkable. SPLEEN: Unremarkable. ADRENAL GLANDS: Unremarkable. KIDNEYS AND URETERS: Bilateral nephrograms are symmetric. No hydronephrosis or obstructing calculus identified. BLADDER: Unremarkable. GASTROINTESTINAL TRACT: No evidence of bowel obstruction or significant wall thickening. The appendix is unremarkable. No free fluid or free air is seen. ABDOMINAL WALL: No significant hernia is appreciated. LYMPH NODES: Normal. VASCULAR: Unremarkable. PELVIC VISCERA: Unremarkable. OSSEOUS STRUCTURES: Unremarkable. CT/CT abdomen pelvis w IV con IMPRESSION: No acute findings identified in the abdomen/pelvis.
[2024-02-04 21:10] VITALS: BP 146/112; PULSE 102; RESP 20; TEMP 36.8; O2SAT 95; BMI 33.5
[2024-02-04 22:46] LABS: MANUAL DIFF FLAG NO
[2024-02-04 22:48] LABS: Basophils Absolute Auto 0.1 X10*3/uL (0.0-0.2); Basophils Percent Auto 0.4 % (0-2); Eosinophils Percent Auto 0.1 % (0-4); Hematocrit 48.6 % (37.0-47.0); Hemoglobin 17.3 g/dl (12.0-16.0); Imm Gran Abs Auto 0.09 X10*3/uL (0.00-0.03); Imm Gran Pct Auto 0.6 % (0.0-0.4); Lymphocytes Absolute Auto 2.6 X10*3/uL (1.2-4.9); Lymphocytes Percent Auto 18.2 % (20-40); Mean Corpuscular HGB Conc 35.6 g/dl (31.0-35.0); Mean Corpuscular Volume 84.4 fL (80.0-98.0); Mean Platelet Volume 9.5 fL (9.4-12.3); Monocytes Absolute Auto 1.1 X10*3/uL (0.1-1.2); Monocytes Percent Auto 7.6 % (2-11); Neutrophils Absolute Auto 10.4 x10*3/uL (2.0-8.3); Neutrophils Percent Auto 73.1 % (45-73); Platelet Count 421 X10*3/uL (160-400); Red Blood Count 5.76 X10*6/uL (4.20-5.50); Red Cell Distribution Width 12.3 % (11.0-16.0); White Blood Count 14.2 X10*3/uL (4.8-10.8)
[2024-02-04 23:09] LABS: Alanine Aminotransferase 33 U/L (0-31); Albumin Level 4.8 g/dL (3.5-5.0); Alkaline Phosphatase 74 U/L (39-117); Anion Gap 16 (12-20); Aspartate Amino Transferase 15 U/L (5-31); Bilirubin Total 1.2 mg/dL (0.0-1.0); Blood Urea Nitrogen 16 mg/dL (9-16); Calcium 10.3 mg/dL (8.4-10.2); Carbon Dioxide 28 mmol/L (22-29); Chloride 99 mmol/L (96-108); Creatinine Clr Calc Pharmacy 81.3; Estimated Glomerular Filt Rate 60; Glucose Random 124 mg/dL (60-115); Potassium 3.5 mmol/L (3.3-5.1); Sodium 139 mmol/L (135-145); Total Protein 8.4 g/dL (6.5-8.0)
[2024-02-04 23:32] LABS: HCG Quantitative < 2 mIU/mL
[2024-02-04 23:41] LABS: Ethanol < 10 mg/dL; Lipase 37 U/L (8-78); Magnesium 2.4 mg/dL (1.6-2.6)
--- NOTE | 2024-02-05 00:37 | ED_ITS ---
HPI - Nausea/Vomiting/Diarrhea General Chief complaint: Nausea/Vomiting/Diarrhea Stated complaint: food poisoning from 01/28, dehydration? Time Seen by Provider: 02/05/24 00:11 Source: patient Mode of arrival: ambulatory Limitations: no limitations History of Present Illness HPI Narrative: 33 yo female seen here Monday for n/v was diagnosed with alcoholic gastritis. She reports she has abrupt onset n/v/d and abdominal cramps after eating shrimp fried rice. She went to see her PCP after ER visit who states it was likely food toxicity. She comes back today with persistent poor PO intake and dizziness she is afraid to eat. She only urinated a few times today. Anytime she sees or smells food she gets nauseated and vomits. No relief with zofran. No diarrhea today, no travel or abx use. MD elicited complaint: nausea, vomiting, diarrhea and abdominal pain Onset (ago): day(s) (Monday) Description of vomiting: watery and bilious Associated nausea: Yes Associated abdominal pain: Yes Location of pain: diffuse Radiation: diffuse Pain consistency: intermittent Severity: mild Quality: cramping Exacerbating factors: eating Relieving factors: none Context: possible food poisoning Associated symptoms: headaches, loss of appetite, malaise, nausea/vomiting and weakness Treatment prior to arrival: other OTC medicine and other (zofran) Related Data Previous Rx's Medication Instructions Recorded cephalexin 500 mg capsule (Keflex) 500 mg PO QID #40 caps 10/04/20 silver-hydrocolloid dressing 1.2 1 ea topical DAILY 1 month #1 box 10/04/20 %-3.5 X 4 (Aquacel-AG) amoxicillin 500 mg capsule 500 mg PO BID #20 caps 06/27/21 ibuprofen 600 mg tablet 600 mg PO Q8H PRN fever or pain 06/27/21 #20 tabs amoxicillin 875 mg-potassium 1 tab PO BID #14 tabs 06/22/22 clavulanate 125 mg tablet ibuprofen 800 mg tablet 800 mg PO Q8H PRN pain #14 tabs 06/22/22 oxycodone 5 mg tablet 5 mg PO Q8H PRN pain #10 tabs 09/14/23 ondansetron 4 mg disintegrating 4 mg PO Q8H PRN nausea and 01/30/24 tablet vomiting 4 days #7 tabs sucralfate 100 mg/mL oral 10 ml PO BID #420 mL 01/30/24 suspension (Carafate) famotidine 20 mg tablet (Pepcid) 20 mg PO BID abdominal discomfort 02/05/24 14 days #28 tabs metoclopramide HCl 10 mg tablet 10 mg PO Q6H PRN nausea and 02/05/24 (Reglan) vomiting #30 tabs Allergies Allergy/AdvReac Type Severity Reaction Status Date / Time adhesive tape Allergy Rash Verified 02/04/24 21:10 Review of Systems 2 Review of Systems: Constitutional : No Weight loss, No Fever, No Chills ENT/Mouth : No sore throat, No Rhinorrhea Eyes: No Swelling, No Redness Cardiovascular : No Chest Pain, No SOB, NoEdema Respiratory : No Cough, No Sputum, No Wheezing Gastrointestinal : Positive Nausea, Positive Vomiting, positive Diarrhea, positive abdominal Pain, No Hematochezia, No Melena Genitourinary : No Dysuria, No Urinary Frequency, No Hematuria, No Urgency Musculoskeletal : No joint pain, No Myalgias, No Joint Swelling Skin : No Skin Lesions, No rash Neuro : No Weakness, No Numbness, No Dizziness, No Headache Psych : No Anxiety/Panic, No Depression Heme/Lymph: No Bruising, No Lymphadenopathy Endocrine : No Polyuria, No Polydipsia All other systems reviewed and are negative. Gastrointestinal: Gastrointestinal: Reports nausea PMFSH Past Medical History Attestation statement: The following information was validated with the patient. Source: old records reviewed Medical History Asthma Surgical History Hx of cholecystectomy Social History Social History Household Members: Children Housing: Apartment Do you presently have visiting nurse or other home services: No Alcohol intake: never Substance Use Type: Marijuana Advance Directives: No Advance Directives Information Provided: No service: No Current occupational status: employed Physical Exam 2 Vital Signs: Vital Signs: Last Vital Signs Temp 97.9 F 02/05/24 02:58 Pulse 76 02/05/24 02:58 Resp 18 02/05/24 02:58 BP 109/70 02/05/24 02:58 Pulse Ox 99 02/05/24 02:58 O2 Del Method Room Air 02/05/24 02:58 BMI result Body Mass Index 33.5 Appearance: Alert. Oriented X3. No acute distress. Eyes: Pupils equal, round and reactive to light. ENT: Pharynx dry MMM Neck: Normal inspection. Neck supple. CVS: Normal heart rate and rhythm. Pulses normal. Respiratory: No respiratory distress. Breath sounds normal. Abdomen: Soft and mild epigastric ttp Skin: Skin warm and dry. Normal skin color. Normal skin turgor. Extremities: No lower extremity edema. No calf ttp Neuro: Oriented X 3. No motor deficit. No sensory deficit. Medications Administered Discontinued Medications Generic Name Dose Route Start Last Admin Trade Name Freq PRN Reason Stop Dose Admin Diphenhydramine HCl 25 mg 02/05/24 00:24 02/05/24 01:00 Diphenhydramine Hcl 50 Mg/Ml Vial IVPUSH 02/05/24 00:25 25 mg ONCE ONE Administration Sodium Chloride 1,000 mls @ 999 mls/hr 02/05/24 00:30 02/05/24 03:35 Ns IV 02/05/24 01:30 Infused .Q1H1M CRISTINO Infusion Sodium Chloride 1,000 mls @ 999 mls/hr 02/05/24 00:30 02/05/24 03:35 Ns IV 02/05/24 01:30 Infused .Q1H1M CRISTINO Infusion Iohexol 85 ml 02/05/24 01:50 02/05/24 01:51 Iohexol 350 Mg/Ml 100 Ml Infus..Btl IV 02/05/24 01:51 85 ml ONCE ONE Administration Metoclopramide HCl 10 mg 02/05/24 00:24 02/05/24 01:00 Metoclopramide Hcl 10 Mg/2 Ml Vial IVPUSH 02/05/24 00:25 10 mg ONCE ONE Administration Medical Decision Making Medical Decision Making MDM Narrative: 33 yo female with prior hx of asthma, lap cholecystectomy here with c/o persistent n/v and upset stomach after eating shrimp fried rice. Her diarrhea has improved she has persistent nausea - she denies ETOH use and THC use to me. I have ordered, labs, IVF x 2L, CT scan for colitis. Dispo per results and ability to eat and drink. Differential Diagnosis Differential Diagnoses: The differential diagnosis associated with the presentation includes cyclical vomiting, colitis, THC use, dehydration Admission/Observation Consideration of admission/observation: Escalation of care including admission/observation considered patient is feeling much better and tolerating PO now Lab Data MDM Lab Attestation statement: I reviewed the patient's lab results. 02/04/24 22:41 02/04/24 22:41 Labs: Lab Results 02/04/24 02/05/24 Range/Units 22:41 02:54 WBC 14.2 H (4.8-10.8) X10*3/uL RBC 5.76 H (4.20-5.50) X10*6/uL Hgb 17.3 H (12.0-16.0) g/dl Hct 48.6 H (37.0-47.0) % MCV 84.4 (80.0-98.0) fL MCH 30.0 (27.0-33.0) pg MCHC 35.6 H (31.0-35.0) g/dl RDW 12.3 (11.0-16.0) % Plt Count 421 H (160-400) X10*3/uL MPV 9.5 (9.4-12.3) fL Immature Gran % (Auto) 0.6 H (0.0-0.4) % Neut % (Auto) 73.1 H (45-73) % Lymph % (Auto) 18.2 L (20-40) % [place] % (Auto) 7.6 (2-11) % Eos % (Auto) 0.1 (0-4) % Baso % (Auto) 0.4 (0-2) % Lymph # (Auto) 2.6 (1.2-4.9) X10*3/uL [place] # (Auto) 1.1 (0.1-1.2) X10*3/uL Eos # (Auto) 0.0 (0.0-0.4) X10*3/uL Baso # (Auto) 0.1 (0.0-0.2) X10*3/uL Abs Immat Gran (auto) 0.09 H (0.00-0.03) X10*3/uL Absolute Neuts (auto) 10.4 H (2.0-8.3) x10*3/uL Absolute Nucleated RBC 0.000 (0.0-0.012) X10*3/uL Nucleated RBC % (auto) 0.0 (0.0-0.2) /100WBC Sodium 139 (135-145) mmol/L Potassium 3.5 (3.3-5.1) mmol/L Chloride 99 (96-108) mmol/L Carbon Dioxide 28 (22-29) mmol/L Anion Gap 16 (12-20) BUN 16 (9-16) mg/dL Creatinine 1.06 (0.5-1.4) mg/dL Estim Creat Clear Calc 81.3 Estimated GFR 60 Random Glucose 124 H (60-115) mg/dL Calcium 10.3 H (8.4-10.2) mg/dL Magnesium 2.4 (1.6-2.6) mg/dL Total Bilirubin 1.2 H (0.0-1.0) mg/dL AST 15 (5-31) U/L ALT 33 H (0-31) U/L Alkaline Phosphatase 74 (39-117) U/L Total Protein 8.4 H (6.5-8.0) g/dL Albumin 4.8 (3.5-5.0) g/dL Lipase 37 (8-78) U/L Beta HCG, Quant < 2 mIU/mL Urine Color Yellow Urine Appearance Clear Urine pH 6.0 (5.0-9.0) Ur Specific [place] >= 1.030 H (1.005-1.025) Urine Protein 100 (2+) H (Neg-Trace) mg/dL Urine Glucose (UA) Negative (Negative) mg/dL Urine Ketones Negative (Negative) mg/dL Urine Blood Small (1+) H (Negative) Urine Nitrite Negative (Negative) Ur Leukocyte Esterase Negative (Negative) Urine RBC 0-2 (0-2) /HPF Urine WBC 0-5 (0-5) /HPF Ur Squamous Epith Cells 3-5 (0-2) /HPF Urine Bacteria 1+ (None Seen) Hyaline Casts 0-2 (0-2) /LPF Urine Opiates Screen Not Detected (Not Detect) Urine Fentanyl Screen Not Detected (Not Detect) Ur Barbiturates Screen Not Detected (Not Detect) Ur Phencyclidine Scrn Not Detected (Not Detect) Ur Amphetamines Screen Not Detected (Not Detect) U Benzodiazepines Scrn Not Detected (Not Detect) Urine Cocaine Screen Not Detected (Not Detect) U Marijuana (THC) Screen POSITIVE H (Not Detect) Ethyl Alcohol < 10 mg/dL Independent Interpretation I performed an independent interpretation of an: CT Scan (normal ) Radiology Impression Discussion of test interpretation with radiology: I have reviewed the radiologist's reading. External Record Review External record reviewed: Inpatient record Prescription Management I considered prescription management with: Other Discharge Plan Discharge Clinical Impression: Acute dehydration, Acute vomiting Patient Disposition: Home, Self-Care Instructions: Dehydration (ED), Acute Nausea and Vomiting (ED) Additional Instructions: stay hydrated, advance diet slowly over 48 hours - very bland. if not better please check with your doctor for GI referral and possibly h pylori testing. no acute findings on your CT scan you were dehydrated we gave you two liters of fluid while in ED. make sure you continue to drink fluids. Prescriptions: New famotidine [Pepcid] 20 mg tablet 20 mg PO BID 14 Days Qty: 28 0RF metoclopramide HCl [Reglan] 10 mg tablet 10 mg PO Q6H PRN (Reason: nausea and vomiting) Qty: 30 0RF No Action ibuprofen 600 mg tablet 600 mg PO Q8H PRN (Reason: fever or pain) Qty: 20 0RF amoxicillin 500 mg capsule 500 mg PO BID Qty: 20 0RF cephalexin [Keflex] 500 mg capsule 500 mg PO QID Qty: 40 0RF Aquacel-AG 1.2-3.5 X 4 %- bandage 1 ea topical DAILY 30 Days Qty: 1 0RF Rx Instructions: Cut square to cover open wounds daily, cover with sterile gauze dressing amoxicillin-pot clavulanate 875-125 mg tablet 1 tab PO BID Qty: 14 0RF ibuprofen 800 mg tablet 800 mg PO Q8H PRN (Reason: pain) Qty: 14 0RF oxycodone 5 mg tablet 5 mg PO Q8H PRN (Reason: pain) Qty: 10 0RF Rx Instructions: Partial Fill upon patient request. sucralfate [Carafate] 100 mg/mL suspension 10 ml PO BID Qty: 420 0RF ondansetron 4 mg tablet,disintegrating 4 mg PO Q8H PRN (Reason: nausea and vomiting) 4 Days Qty: 7 0RF Stand Alone Forms: Work/School Release
[2024-02-05] MEDS: diphenhydrAMINE HCL 50 MG/ML VIAL 25 MG IVPUSH (01:00)
[2024-02-05] MEDS: Metoclopramide HCl 10 MG/2 ML VIAL IVPUSH (01:00)
[2024-02-05] MEDS: 0.9 % Sodium Chloride 1,000 ML 999 ML IV ×2 (01:01→01:09)
--- NOTE | 2024-02-05 01:11 | PC.NURSE ---
IV #20 R-AC, IV fluids running and medication administered as ordered.
[2024-02-05] MEDS: iohexoL 350 MG/ML 100 ML INFUS..BTL 85 ML IV (01:51)
[2024-02-05 02:58] VITALS: BP 109/70; PULSE 76; RESP 18; TEMP 36.6; O2SAT 99
[2024-02-05 03:06] LABS: Appearance Urine Clear; Color Urine Yellow; Glucose Urine UA Negative (Negative); Leukocyte Esterase Urine Negative (Negative); Nitrite Urine Negative (Negative); Specific Gravity - Urine >= 1.030 (1.005-1.025); UMIC TRIGGER UACC YES; Urine Blood Small (1+) (Negative); Urine Ketones Negative (Negative); Urine Protein 100 (2+) mg/dL (Neg-Trace)
[2024-02-05 03:13] LABS: Amphetamine Screen Urine Not Detected (Not Detect); Bacteria Urine 1+ (None Seen); Barbiturates, Urine Not Detected (Not Detect); Benzodiazepines Screen Urine Not Detected (Not Detect); Cannabinoid Screen Urine POSITIVE (Not Detect); Cocaine Screen Urine Not Detected (Not Detect); Fentanyl, urine Not Detected (Not Detect); Hyaline Casts Urine 0-2 /LPF (0-2); Opiate Screen Urine Not Detected (Not Detect); Phencyclidine Screen Urine Not Detected (Not Detect); RBC Urine 0-2 /HPF (0-2); WBC Urine 0-5 /HPF (0-5)
[2024-02-05 06:23] VITALS: BP 122/94; PULSE 81; RESP 18; TEMP 36.7; O2SAT 97
== END 2024-02-05 06:24 | disposition home or self-care (01) ==
PROVIDERS: Physician Assistant; Emergency Provider Emergency Medicine; PCP Nurse Practitioner Primary Care
DX: E86.0 Dehydration (principal); R11.10 Vomiting, unspecified; J45.909 Unspecified asthma, uncomplicated; Z90.49 Acquired absence of other specified parts of digestive tract
CPT/HCPCS: 36415; 74177; 80053; 80307; 81001; 81003; 83690; 83735; 84702; 85025; 96361; 96374; 96375; 99284; J1200; J2765; Q9967